=== PATIENT | male | born 1965 | race Caucasian/White ===

== ENCOUNTER 2020-03-09 17:20 | Emergency (ER) | payer MEDICAID ==
[~2020-03-09] VITALS: Ht 167.6 cm; Wt 68.2 kg
[~2020-03-09 17:20] MED LIST: ACYC200C PO; ASPI-556 PO; GABA-1181 PO; GLIP10 PO; INSLAN SQ; LISI-660 PO; METF-960 PO
[2020-03-09] MEDS ORDERED: VANCOMYCIN HCL 1 GM/D5% WATER 200 ML IV ONE (18:00)
[2020-03-09] MEDS ORDERED: PIPERACILLIN/TAZO 3.375 GM/D5W 50 ML IV ONE (18:00)
[2020-03-09] MEDS ORDERED: 0.9% SODIUM CHLORIDE 10 ML SYRINGE IVP PRN (18:00)
[2020-03-09] MEDS ORDERED: ASPI-1111 PO (18:04)
[2020-03-09 18:30] LABS: BASOPHILS % (AUTO) 0.3 % (0.0-2.0); EOSINOPHILS % (AUTO) 0.5 % (1.0-6.0); HEMATOCRIT 35.6 % (41-53); HEMOGLOBIN 11.9 g/dL (13.5-17.5); LYMPHOCYTES % (AUTO) 9.4 % (22.0-44.0); MEAN CORPUSCULAR HEMOGLOBIN 30.2 pg (26.0-34.0); MEAN CORPUSCULAR HGB CONC 33.4 G/dL (31.0-37.0); MEAN CORPUSCULAR VOLUME 90 fL (80-100); MONOCYTES # (AUTO) 0.7 K/uL (0.1-1.0); MONOCYTES % (AUTO) 6.5 % (2.0-9.0); NEUTROPHILS # (AUTO) 9.2 K/uL (1.8-7.7); NEUTROPHILS % (AUTO) 83.3 % (40.0-70.0); PLATELET COUNT (AUTO) 311 K/uL (150-450); RED BLOOD CELL COUNT(AUTO) 3.94 MIL/uL (4.50-5.90); RED CELL DISTRIBUTION WIDTH 13.2 % (11.5-14.5)
[2020-03-09 18:49] LABS: ALANINE AMINOTRANSFERASE 45 U/L (12-78); ALBUMIN 3.4 g/dL (3.4-5.0); ALKALINE PHOSPHATASE 132 U/L (46-116); ANION GAP 11 mmol/L (8-16); ASPARTATE AMINOTRANSFERASE 39 U/L (15-37); BILIRUBIN,TOTAL 0.4 mg/dL (0.1-1.0); CALCIUM, TOTAL 9.2 mg/dL (8.8-10.5); CARBON DIOXIDE 25 mmol/L (22-29); CHLORIDE 92 mmol/L (98-107); CREATININE 0.91 mg/dL (0.60-1.30); GLOMERULAR FILTR. RATE CALC > 60 mL/min (>60); POTASSIUM 4.3 mmol/L (3.5-5.1); SODIUM SERUM 128 mmol/L (136-145); TOTAL PROTEIN, SERUM 8.2 g/dL (6.4-8.2); UREA NITROGEN, BLOOD 14 mg/dL (7-18)
[2020-03-09 18:51] LABS: GLUCOSE,RANDOM 515 mg/dL (70-110)
[2020-03-09 18:53] LABS: LACTIC ACID 1.6 mmol/L (0.4-2.0)
[2020-03-09] MEDS ORDERED: INSULIN REGULAR, HUMAN 100 UNITS/ML SQ ONE (19:30)
[2020-03-09] MEDS ORDERED: PERTUSS(ACELL),DIPH,TET VAC/PF 0.5 ML VIAL IM ONE (19:30)
[2020-03-09] MEDS ORDERED: SILVER SULFADIAZINE 1% 25 GM CREAM TP ONE (19:30)
[2020-03-09 20:51] VITALS: BP 127/78
== END 2020-03-09 21:14 | disposition home or self-care (01) ==
LOC: EMS 17:20
DX: T23.221A Burn of second degree of single right finger (nail) except thumb, initial encounter (principal); T31.0 Burns involving less than 10% of body surface; I10 Essential (primary) hypertension; E11.9 Type 2 diabetes mellitus without complications; Z79.899 Other long term (current) drug therapy; Z79.82 Long term (current) use of aspirin; X10.1XXA Contact with hot food, initial encounter; Y93.89 Activity, other specified; Y92.89 Other specified places as the place of occurrence of the external cause; Y99.8 Other external cause status
CPT/HCPCS: 36415; 73140; 80053; 82962; 83605; 85025; 87040; 90471; 90715; 96365; 96366; 96367; 96372; 99284; J1815; J2543; J3370; 96375

== ENCOUNTER 2020-11-21 12:59 | Emergency (ER) | payer MEDICAID ==
[~2020-11-21] VITALS: Ht 162.6 cm; Wt 60.9 kg
[~2020-11-21 12:59] MED LIST changes: -ACYC200C PO; +ACYC200C24 PO; +ASPI-1444 PO; -ASPI-556 PO; -LISI-660 PO; +LISI-892 PO
[2020-11-21 13:01] VITALS: BP 122/78
[2020-11-21] MEDS ORDERED: EMPA25TA PO (13:06)
[2020-11-21] MEDS ORDERED: ACET-3385 PO (13:06)
[2020-11-21] MEDS ORDERED: INSU100I26 SQ (13:06)
[2020-11-21] MEDS ORDERED: OFLO35OS AU (13:06)
== END 2020-11-21 14:30 | disposition home or self-care (01) ==
LOC: EMS 13:03
DX: H65.02 Acute serous otitis media, left ear (principal); H60.502 Unspecified acute noninfective otitis externa, left ear; E11.9 Type 2 diabetes mellitus without complications; I10 Essential (primary) hypertension
CPT/HCPCS: 82962; 99283